=== PATIENT | female | born 1990 | race Hispanic/Latino ===

== ENCOUNTER 2018-11-19 18:48 | Emergency (ER) | payer OTHER ==
[2018-11-19 18:52] VITALS: BMI 22.6
[2018-11-19] MEDS ORDERED: Lidocaine 1% Inj (20ml) INFIL ONE (19:16)
[2018-11-19] MEDS ORDERED: Bacitracin 500 Units/gm Oint Foilpak UD TOP ONE (19:17)
--- NOTE | 2018-11-19 19:20 | C.PDOC ---
History Of Present Illness 28 y/o female c/o laceration to palmar surface left middle finger, by knife, just prior to arrival. pt was using butter knife to separate two things and struck finger by accident. no numbness or tingling. last tdap apprx 2010 Time Seen by Provider: 11/19/18 19:04 Chief Complaint (Nursing): Abnormal Skin Integrity History Per: Patient History/Exam Limitations: no limitations Onset/Duration Of Symptoms: Hrs (lkess than one) Current Symptoms Are (Timing): Gone Location Of Injury: Left: Hand (middle finger) Quality Of Symptoms: Painful Severity: Mild Past Medical History Reviewed: Historical Data, Nursing Documentation, Vital Signs Vital Signs: Last Vital Signs Temp 98.2 F 11/19/18 18:52 Pulse 93 H 11/19/18 18:52 Resp 18 11/19/18 18:52 BP 92/63 L 11/19/18 18:52 Pulse Ox 97 11/19/18 18:52 - Medical History PMH: Anxiety, Depression Surgical History: Tonsillectomy Family History: States: Unknown Family Hx - Social History Hx Alcohol Use: No Hx Substance Use: No - Immunization History Hx Tetanus Toxoid Vaccination: Yes (2010) Hx Influenza Vaccination: Yes Hx Pneumococcal Vaccination: No Review Of Systems Constitutional: Negative for: Fever, Chills Skin: Positive for: Other (laceration left middle finger). Negative for: Rash Neurological: Negative for: Weakness, Numbness Physical Exam - Physical Exam Appears: Non-toxic, No Acute Distress Skin: Warm, Dry, Other (1 cm shallow laceration to proximal left middle finger on palmar surface, from of finger with passive and acitve resistance. sensation intact. ) Extremity: Normal ROM, Tenderness, Other (1 cm shallow laceration proximal left 3rd finger ) Pulses: Left Radial: Normal Neurological/Psych: Oriented x3, Normal Speech, Normal Cognition, Normal Motor, Normal Sensation ED Course And Treatment O2 Sat by Pulse Oximetry: 97 Laceration - Laceration Repair left finger Wound Length (In cm): 1 Description Of Wound: Linear, Clean Wound Cleansed With: Betadine, Sterile Saline Anesthesia: Lidocaine 1% Wound Examination: Irrigated With Saline, No FB With Wound Exploration, No Tendon Injury With Wound Exploration Wound Closure: Suture (5-0 ethilon) Suture Technique And Material Used: Interrupted (#2) Wound Complexity: Simple Medical Decision Making Medical Decision Making: pt with shallow laceration to proximal palmar surface left middle finger, will repair with stitches rather than dermabond due to mobility of finger. pt tolerated procedure well. tdap updated. Disposition Counseled Patient/Family Regarding: Diagnosis, Need For Followup - Disposition Disposition: HOME/ ROUTINE Disposition Time: 19:47 Condition: IMPROVED Additional Instructions: Keep wound clean and dry. Change dressing daily, wash with soap and water and pat dry gently. Aplly antibioitc ointment once a day. Tylenol for pain if needed, Return to ER for any signs of infection, such as redness, swelling, purulent discharge, fever. Suture removal in 7-10 days. Instructions: Laceration Repair With Stitches (DC) Forms: General Discharge Instructions, [facility] (Filipino) - Clinical Impression Clinical Impression: Laceration of left middle finger
[2018-11-19] MEDS ORDERED: Lidocaine Hydrochloride 5 ML INJ ONE (19:24)
[2018-11-19] MEDS ORDERED: Tdap Vaccine 0.5 ml Vial (10-64 yrs) IM ONE ×3 (19:30→19:58)
[2018-11-19] MEDS ORDERED: Bacitracin 500 Units/gm Oint Foilpak UD ONE (19:48)
[2018-11-19 20:05] VITALS: BP 100/60; PULSE 80; RESP 14; TEMP 98.5
[2018-11-20 06:39] VITALS: O2SAT 97
== END 2018-11-19 20:05 | disposition home or self-care (01) ==
LOC: C.ER 18:48 → EDSEX 18:48 → C.ER 20:05
DX: S61.213A Laceration without foreign body of left middle finger without damage to nail, initial encounter (principal); W26.0XXA Contact with knife, initial encounter